=== PATIENT | female | born 1965 | race Caucasian/White ===

== ENCOUNTER → 2022-12-02 08:21 | Outpatient (BNVA) | payer MEDICARE, MEDICAID, SELFPAY | PROVIDERS: PCP Internal Medicine; Visit Provider Psychiatry & Neurology Neurology | DX: G40.909 Epilepsy, unspecified, not intractable, without status epilepticus (principal); I69.354 Hemiplegia and hemiparesis following cerebral infarction affecting left non-dominant side; F48.2 Pseudobulbar affect; G47.10 Hypersomnia, unspecified; R06.83 Snoring | CPT/HCPCS: 99202 ==

== ENCOUNTER → 2023-01-10 19:30 | Outpatient (BNV) | payer MEDICARE, MEDICAID, SELFPAY | PROVIDERS: PCP Internal Medicine; Visit Provider Psychiatry & Neurology Neurology | DX: G47.33 Obstructive sleep apnea (adult) (pediatric) (principal) | CPT/HCPCS: 95810 ==

== ENCOUNTER → 2023-01-10 20:30 | Outpatient (REF) | payer MEDICARE, MEDICAID, SELFPAY | LOC: HO.SL 20:30 | PROVIDERS: PCP Internal Medicine; Visit Provider Psychiatry & Neurology Neurology | DX: R06.83 Snoring (principal); G47.10 Hypersomnia, unspecified | CPT/HCPCS: 95810 ==

== ENCOUNTER 2023-01-22 18:50 | Outpatient (REF) | payer MEDICARE, MEDICAID, SELFPAY ==
--- NOTE | ~2023-01-22 | MR_ITS ---
MRI OF THE BRAIN WITHOUT IV CONTRAST INDICATION: Cerebral infarction. COMPARISON: None available. TECHNIQUE: Multiplanar multisequence MR imaging of the brain was obtained without IV contrast. FINDINGS: There is no hydrocephalus, extra-axial surface collection, or herniation. There is global cerebral and callosal volume loss. There is chronic encephalomalacia and gliosis within the left frontal lobe, likely a chronic left DARLENE territory infarct. Chronic lacunar infarcts within the deep olivera nuclei bilaterally and the left cerebellum. Moderate confluent T2 signal changes concentrated within the periventricular white matter with some foci oriented perpendicular to the lateral ventricular margins and several areas of chronic encephalomalacia spanning the corpus callosum. While a subset of these findings could reflect chronic microangiopathy, the pattern warrants correlating clinically for any evidence of underlying demyelinating disease given the distribution. The major flow voids at the skull base are preserved. There is no acute infarct on diffusion-weighted imaging. There is no intracranial hemorrhage on the gradient recalled echo acquisition. The midline structures are normal. The cerebellar tonsils are normally positioned. The cerebellum and brainstem are normal. The craniocervical junction is normal. Osseous marrow signal intensity is homogenous. The visualized soft tissues are unremarkable. MR/MR head/brain wo con IMPRESSION: - There are no acute intracranial findings. No acute infarcts. - There is chronic encephalomalacia and gliosis within the left frontal lobe, likely a chronic left DARLENE territory infarct. Chronic lacunar infarcts within the deep olivera nuclei bilaterally and the left cerebellum. There is global cerebral and callosal volume loss. - Moderate confluent T2 signal changes concentrated within the periventricular white matter with some foci oriented perpendicular to the lateral ventricular margins and several areas of chronic encephalomalacia spanning the corpus callosum. While a subset of these findings could reflect chronic microangiopathy, the pattern warrants correlating clinically for any evidence of underlying demyelinating disease given the distribution.
== END 2023-01-22 18:51 | disposition home or self-care (01) ==
LOC: HO.MRI 18:50
PROVIDERS: PCP Internal Medicine; Visit Provider Psychiatry & Neurology Neurology
DX: I63.9 Cerebral infarction, unspecified (principal)
CPT/HCPCS: 70551

== ENCOUNTER 2023-03-10 14:08 | Outpatient (AMB) | payer MEDICARE, MEDICAID, SELFPAY ==
--- NOTE | 2023-03-10 14:12 | A.OFFVIS_ITS ---
Intake Vital Signs 03/10/23 14:13 Height 5 ft 9 in Weight 257 lb 8 oz BMI 38.0 BP 130/84 Blood Pressure Location Lt brachial Position Sitting Pulse 82 Pulse Source Pulse Oximeter Pulse Oximetry (%) 97 Oxygen Delivery Method Room Air Intake Visit Reasons: 3m follow up Seizures/Hx of Strokes - Confirmed Intake Note: Pt presents to the office today for a 3 month follow up seizures/hx of strokes. Pt states she is still having issues with her CPAP machine. Pt is having trouble still adjusting to the machine at nighttime. Allergies vancomycin Allergy (Severe, Verified 03/10/23 14:15) Rash HPI HPI Comments History of Present Illness Details 57 y/o female patient presents for follo w up of seizures and sleep apnea. No breakthrough seizure reported. She has hx of a stroke 10 years ago - left hemiparesis with mild residual weakness. She is on 750 mg bid and 250 mg qhs. Her last seizure was 7 years ago when her levetiracetam dose was lowered. Pt underwent split night sleep study. The baseline portion of the sleep study was significant for severe degree of sleep apnea. The AHI was 52/hr and oxygen brianda was 83%. An ideal treatment pressure was not obtained during the sleep study. Pt started APAP at [id number]. The compliance and therapy response (02/08/23-03/09/23) reviewed. The usage days 60% and the average usage hours 3 hours. The maximum pressure was 8.6 and the AHI was 1.2/hr. Brain MRI result reviewed. Pt reports family hx of MS, her mother had it. Pt denies any MS symptoms today. There are no acute intracranial findings. No acute infarcts. - There is chronic encephalomalacia and gliosis within the left frontal lobe, likely a chronic left DARLENE territory infarct. Chronic lacunar infarcts within the deep olivera nuclei bilaterally and the left cerebellum. There is global cerebral and callosal volume loss. - Moderate confluent T2 signal changes c oncentrated within the periventricular white matter with some foci oriented perpendicular to the lateral ventricular margins and several areas of chronic encephalomalacia spanning the corpus callosum. While a subset of these findings could reflect chronic microangiopathy, the pattern warrants correlating clinically for any evidence of underlying demyelinating disease given the distribution. [facility] Medical History Hypersomnia Loud snoring Pseudobulbar affect Cognitive disorder Aortic root dilatation LVH (left ventricular hypertrophy) SVT (supraventricular tachycardia) Colon polyp Hyperlipidemia Hypertrophic cardiomyopathy HTN (hypertension) Secondary seizure disorder Left hemiparesis Cerebral infarction involving middle cerebral artery Cerebral infarction involving anterior cerebral artery Chronic ischemic left anterior cerebral artery (DARLENE) stroke Diabetes Family History Father Heart disease Emphysema lung Mother Multiple sclerosis Social History Alcohol intake: current Patient Tobacco Use Status: Never used Tobacco Review of Systems Const All systems reviewed & are unremarkable except as noted in HPI and below Physical Exam Vital Signs: Last Vital Signs Pulse 82 03/10/23 14:13 BP 130/84 03/10/23 14:13 Pulse Ox 97 03/10/23 14:13 Oxygen Delivery Method Room Air 03/10/23 14:13 BMI result Body Mass Index 38.0 Const General: cooperative and healthy appearing Nutritional Appearance: obese Orientation/consciousness: patient oriented x3 Limitations: no limitations Eyes Pupils: Equal, round and reactive pupils present Neuro Other: mallampatti grade 4 Mild left facial wekaness and synckinesis MIld left UE weakness -5/5 Left LE -5/5 with mild increased tone 5/5 power in right UE and LE General: patient oriented x3, tone normal and moves all extremities Cranial nerves: Yes Equal, round and reactive pupils present, Yes Nystagmus not present, Yes Midline tongue present and Yes Symmetric palate elevation present Cognition (Neuro): normal cognition Gait exam (Neuro): Other gait observations present (mild slowness) Deep tendon reflexes (DTR's): Right triceps reflex intensity grade: 1+, Left triceps reflex intensity grade: 1+, Rt Biceps (C5, C6): 1+, Left biceps reflex intensity grade: 1+, Right brachioradialis reflex intensity grade: 1+, Left brachioradialis reflex intensity grade: 1+, Right patellar reflex intensity grade: 1+ and Left patellar reflex intensity grade: 1+ Coordination: [id number] test normal Assessment & Plan Assessment & Plan (1) Secondary seizure disorder: Code(s): G40.909 - Epilepsy, unspecified, not intractable, without status epilepticus (2) Pseudobulbar affect: Code(s): F48.2 - Pseudobulbar affect (3) Left hemiparesis: Code(s): G81.94 - Hemiplegia, unspecified affecting left nondominant side (4) Sleep apnea treated with continuous positive airway pressure (CPAP): Code(s): G47.30 - Sleep apnea, unspecified Plan Continue Levetiracetam 750mg BID and 250 mg qhs. Continue to use APAP [id number], stressed compliance, use CPAP nightly and more than 4 hrs. Advised patient to try CPAP while she watches TV to get used to it. Continue amitriptyline 25mg qhs. Refer patient to [facility] for abnormal brain MRI result to r/o MS. Orders: Referrals Neurology Referral R90.89 - Other abnormal findings on diagnostic imaging of central nervous system Coding Level of Care Code Est Pt Level 4 (22213) Diagnoses Secondary seizure disorder G40.909 Pseudobulbar affect F48.2 Left hemiparesis G81.94 Sleep apnea treated with continuous positive airway pressure (CPAP) G47.30
[2023-03-10 14:13] VITALS: BP 130/84; PULSE 82; O2SAT 97; BMI 38.0
== END 2023-03-10 14:48 | disposition home or self-care (01) ==
PROVIDERS: PCP Internal Medicine; Visit Provider Nurse Practitioner Family
DX: G40.909 Epilepsy, unspecified, not intractable, without status epilepticus (principal); F48.2 Pseudobulbar affect; G81.94 Hemiplegia, unspecified affecting left nondominant side; G47.30 Sleep apnea, unspecified
CPT/HCPCS: 99214

== ENCOUNTER → 2023-03-10 14:08 | Outpatient (BNVA) | payer MEDICARE, MEDICAID, SELFPAY | PROVIDERS: PCP Internal Medicine; Visit Provider Nurse Practitioner Family | DX: G40.909 Epilepsy, unspecified, not intractable, without status epilepticus (principal); F48.2 Pseudobulbar affect; G81.94 Hemiplegia, unspecified affecting left nondominant side; G47.30 Sleep apnea, unspecified | CPT/HCPCS: 99212 ==

== ENCOUNTER 2023-07-28 14:16 | Outpatient (AMB) | payer MEDICARE, MEDICAID, SELFPAY ==
--- NOTE | 2023-07-28 14:29 | A.OFFVIS_ITS ---
Intake Vital Signs 07/28/23 14:36 Height 5 ft 9 in Weight 261 lb 6 oz BMI 38.6 BP 130/82 Blood Pressure Location Lt brachial Position Sitting Pulse 79 Pulse Source Pulse Oximeter Pulse Oximetry (%) 96 Oxygen Delivery Method Room Air Intake Visit Reasons: appt for CPAP benefits documentation - CONF Intake Note: Patient presents for CPAP benefits documentation. having trouble using machine and gets up coughing Allergies vancomycin Allergy (Severe, Verified 07/28/23 14:35) Rash HPI HPI Comments History of Present Illness Details 57 y/o female patient presents for follo w up of seizures and sleep apnea. No breakthrough seizure reported. She has hx of a stroke 10 years ago - left hemiparesis with mild residual weakness. She is on Keppra 750 mg bid and 250 mg qhs. Her last seizure was 7 years ago when her levetiracetam dose was lowered. Pt underwent split night sleep study. The baseline portion of the sleep study was significant for severe degree of sleep apnea. The AHI was 52/hr and oxygen brianda was 83%. An ideal treatment pressure was not obtained during the sleep study. Pt is on APAP at 7-15 cmH2O. The compliance and therapy response (04/26/23-07/24/23) reviewed. The usage days 20% and the average usage hours 4 hours. The maximum pressure was 12.8 and the AHI was 1/hr. [facility] Medical History Hypersomnia Loud snoring Pseudobulbar affect Cognitive disorder Aortic root dilatation LVH (left ventricular hypertrophy) SVT (supraventricular tachycardia) Colon polyp Hyperlipidemia Hypertrophic cardiomyopathy HTN (hypertension) Secondary seizure disorder Left hemiparesis Cerebral infarction involving middle cerebral artery Cerebral infarction involving anterior cerebral artery Chronic ischemic left anterior cerebral artery (DARLENE) stroke Diabetes Family History Father Heart disease Emphysema lung Mother Multiple sclerosis Social History Alcohol intake: current Patient Tobacco Use Status: Never used Tobacco Review of Systems Const All systems reviewed & are unremarkable except as noted in HPI and below Neuro Reports Abnormal speech present Physical Exam Vital Signs: Last Vital Signs Pulse 79 07/28/23 14:36 BP 130/82 07/28/23 14:36 Pulse Ox 96 07/28/23 14:36 Oxygen Delivery Method Room Air 07/28/23 14:36 BMI result Body Mass Index 38.6 Const General: cooperative and healthy appearing Nutritional Appearance: obese Orientation/consciousness: patient oriented x3 Limitations: no limitations Eyes Pupils: Equal, round and reactive pupils present Neuro Other: mallampatti grade 4 Mild left facial wekaness and synckinesis MIid left UE weakness -5/5 Left LE -5/5 with mild increased tone 5/5 power in right UE and LE General: patient oriented x3, tone normal and moves all extremities Cranial nerves: Yes Equal, round and reactive pupils present, Yes Nystagmus not present, Yes Midline tongue present and Yes Symmetric palate elevation present Cognition (Neuro): normal cognition Speech: Abnormal speech present slurred Gait exam (Neuro): Other gait observations present (mild slowness) Deep tendon reflexes (DTR's): Right triceps reflex intensity grade: 1+, Left triceps reflex intensity grade: 1+, Rt Biceps (C5, C6): 1+, Left biceps reflex intensity grade: 1+, Right brachioradialis reflex intensity grade: 1+, Left brachioradialis reflex intensity grade: 1+, Right patellar reflex intensity grade: 1+ and Left patellar reflex intensity grade: 1+ Coordination: [id number] test normal Assessment & Plan Assessment & Plan (1) Secondary seizure disorder: Code(s): G40.909 - Epilepsy, unspecified, not intractable, without status epilepticus (2) Sleep apnea treated with continuous positive airway pressure (CPAP): Code(s): G47.30 - Sleep apnea, unspecified Plan Continue Levetiracetam 750mg BID and 250 mg qhs. Continue to use APAP 7-17 cmH2O, stressed compliance, use CPAP nightly and more than 4 hrs. Advised patient to try CPAP while she watches TV to get used to it. Continue amitriptyline 25mg qhs. Pt requested brain MRI image. Radiology number given to patient to request CD, and she will bring to her MS [place] luna. She was referred to [facility]. Coding Level of Care Code Est Pt Level 4 (02747) Diagnoses Secondary seizure disorder G40.909 Sleep apnea treated with continuous positive airway pressure (CPAP) G47.30
[2023-07-28 14:36] VITALS: BP 130/82; PULSE 79; O2SAT 96; BMI 38.6
== END 2023-07-28 14:52 | disposition home or self-care (01) ==
PROVIDERS: PCP Internal Medicine; Visit Provider Nurse Practitioner Family
DX: G40.909 Epilepsy, unspecified, not intractable, without status epilepticus (principal); G47.30 Sleep apnea, unspecified
CPT/HCPCS: 99214

== ENCOUNTER → 2023-07-28 14:16 | Outpatient (BNVA) | payer MEDICARE, MEDICAID, SELFPAY | PROVIDERS: PCP Internal Medicine; Visit Provider Nurse Practitioner Family | DX: G47.30 Sleep apnea, unspecified (principal); G40.909 Epilepsy, unspecified, not intractable, without status epilepticus | CPT/HCPCS: 99212 ==

== ENCOUNTER 2023-11-29 14:19 | Outpatient (AMB) | payer MEDICARE, MEDICAID, SELFPAY ==
--- NOTE | 2023-11-29 14:29 | A.OFFVIS_ITS ---
Vital Signs 11/29/23 14:30 Height 5 ft 9 in Weight 259 lb 6 oz BMI 38.3 BP 162/88 H Blood Pressure Location Rt brachial Position Sitting Respiration 16 Pulse 72 Pulse Source Pulse Oximeter Pulse Oximetry (%) 96 Oxygen Delivery Method Room Air Intake Visit Reasons: 4m follow up-CONF Intake Note: Pt presents for 4 month follow up for sleep apnea. Pt reports making progress in using her CPAP. Restrooms Or Lounges Maid Required: No Allergies vancomycin Allergy (Severe, Verified 11/29/23 14:30) Rash Medication List - Last Reconciled 11/29/23 by AMNA Martin amitriptyline 25 mg PO BEDTIME dulaglutide (Trulicity) 4.5 mg subcut QWEEK levetiracetam 750 mg PO BID 90 days levetiracetam 250 mg PO DAILY 90 days metformin ER 1,000 mg PO BID rosuvastatin 20 mg PO BEDTIME verapamil 80 mg PO TID HPI Comments Details: 57-yr-old female presents for f/u visit of seizure and YADIEL. Pt denies any significant interval medical changes. Pt denies interval seizure activity. Last seizure was 8 yrs ago. She had consult at [facility]- Pt states they felt that the intracerebral white matter changes on the recent brain MRI were c/w chronic microangiopathic changes in setting of h/o CVA. And not reflective of a demyelinating process, such as MS. Pt herself does not feel that she has had s/s of MS. Pt reports that she is better able to tolerate her CPAP.more. However, if she cannot breath well d/t her allergy s/s then she cannot tolerate it well. Usually goes to bed between 10pm-12am. Her machine does not seem to be clearing the hours between uses. Amitriptyline is still helpful for pseudobulbar affective d/o s/s. [facility] Medical History Hypersomnia Loud snoring Pseudobulbar affect Cognitive disorder Aortic root dilatation LVH (left ventricular hypertrophy) SVT (supraventricular tachycardia) Colon polyp Hyperlipidemia Hypertrophic cardiomyopathy HTN (hypertension) Secondary seizure disorder Left hemiparesis Cerebral infarction involving middle cerebral artery Cerebral infarction involving anterior cerebral artery Chronic ischemic left anterior cerebral artery (DARLENE) stroke Diabetes Family History Father Heart disease Emphysema lung Mother Multiple sclerosis Social History Alcohol intake: current Patient Tobacco Use Status: Never used Tobacco Physical Exam Vital Signs: Last Vital Signs Pulse 72 11/29/23 14:30 Resp 16 11/29/23 14:30 BP 162/88 H 11/29/23 14:30 Pulse Ox 96 11/29/23 14:30 Oxygen Delivery Method Room Air 11/29/23 14:30 BMI result Body Mass Index 38.3 Const General: cooperative and no acute distress Orientation/consciousness: patient oriented x3 Resp Effort & Inspection: normal respiratory effort and able to speak in complete sentences Neuro Other: Left hemiparesis General: patient oriented x3 Cognition (Neuro): normal cognition Psych Appearance: grossly normal Mental Status: mental status grossly normal Speech and movement: Normal speech and movement present Affect: normal affect Attitude: cooperative Assessment & Plan Assessment & Plan (1) Sleep apnea treated with continuous positive airway pressure (CPAP): Code(s): G47.30 - Sleep apnea, unspecified Category: Medical (2) Secondary seizure disorder: Code(s): G40.909 - Epilepsy, unspecified, not intractable, without status epilepticus Category: Medical (3) Abnormal finding on MRI of brain: Code(s): R90.89 - Other abnormal findings on diagnostic imaging of central nervous system Category: Medical Plan Continue Keppra 1000mg qam and Keppra 750mg qhs. Continue APAP at 7-15 cmH2O. May use Benadryl qhs prn for allergy s/s. If allergy s/s worsen- could consider optimizing allergy tx or referring pt back to general repair mechanic. Continue amitriptyline 25mg qhs- for pseudobulbar affect f/u in 6 months or sooner prn. Medications: Changed 2 From amitriptyline 25 mg PO BEDTIME 90 tabs 4RF To amitriptyline 25 mg PO BEDTIME 90 tabs 3RF 90 days Refilled levetiracetam 250 mg PO DAILY 90 tabs 3RF 90 days levetiracetam 750 mg PO BID 180 tabs 3RF 90 days Coding Level of Care Code Est Pt Level 4 (16625) Diagnoses Sleep apnea treated with continuous positive airway pressure (CPAP) G47.30 Secondary seizure disorder G40.909 Abnormal finding on MRI of brain R90.89
[2023-11-29 14:30] VITALS: BP 162/88; PULSE 72; RESP 16; O2SAT 96; BMI 38.3
== END 2023-11-29 15:31 | disposition home or self-care (01) ==
PROVIDERS: PCP Internal Medicine; Visit Provider Nurse Practitioner Family
DX: G47.30 Sleep apnea, unspecified (principal); G40.909 Epilepsy, unspecified, not intractable, without status epilepticus; R90.89 Other abnormal findings on diagnostic imaging of central nervous system
CPT/HCPCS: 99214

== ENCOUNTER → 2023-11-29 14:19 | Outpatient (BNVA) | payer MEDICARE, MEDICAID, SELFPAY | PROVIDERS: PCP Internal Medicine; Visit Provider Nurse Practitioner Family | DX: G40.909 Epilepsy, unspecified, not intractable, without status epilepticus (principal); G47.30 Sleep apnea, unspecified; R90.89 Other abnormal findings on diagnostic imaging of central nervous system | CPT/HCPCS: 99212 ==

== ENCOUNTER 2024-06-27 14:51 | Outpatient (AMB) | payer MEDICARE, MEDICAID, SELFPAY ==
--- NOTE | 2024-06-27 15:00 | MHC.OFFVIS ---
Vital Signs 06/27/24 15:02 Height 5 ft 9 in Weight 259 lb 6 oz BMI 38.3 BP 130/90 H Blood Pressure Location Lt brachial Position Sitting Pulse 78 Pulse Source Pulse Oximeter Pulse Oximetry (%) 97 Oxygen Delivery Method Room Air Intake Visit Reasons: 6 month F/U Accompanied by: Self / Same As Patient Allergies vancomycin Allergy (Severe, Verified 06/27/24 15:05) Rash Medication List - Last Reconciled 06/27/24 by AMNA Martin amitriptyline 25 mg PO BEDTIME 90 days levetiracetam 250 mg PO DAILY 90 days levetiracetam 750 mg PO BID 90 days metformin ER 1,000 mg PO BID rosuvastatin 20 mg PO BEDTIME semaglutide (Ozempic) 0.5 mg subcut QWEEK verapamil 80 mg PO TID HPI Comments Details: 58-yr-old female presents for f/u visit of seizure and YADIEL. Pt denies any significant interval medical changes. She states she has a new fancy wire drawer at Cardiology (at [facility]), as Dr Barksdale has retired. Pt denies interval seizure activity. Last seizure was 8 yrs ago. Pt reports she has not been using her CPAP, states she just cannot start to fall asleep with it on. She does continue to have loud snoring. She read up on the inspire implant for YADIEL tx, however she is not interested in this type of surgical procedure. She is not interested in adding a new medication to help with sleep, anxiety related to the CPAP mask. Would not increase amitriptyline due to her cardiovascular disease, and she would be hesitant due to risk for weight gain. She would be open to trying melatonin. Amitriptyline is still helpful for pseudobulbar affective d/o s/s. [facility] Medical History Hypersomnia Loud snoring Pseudobulbar affect Cognitive disorder Aortic root dilatation LVH (left ventricular hypertrophy) SVT (supraventricular tachycardia) Colon polyp Hyperlipidemia Hypertrophic cardiomyopathy HTN (hypertension) Secondary seizure disorder Left hemiparesis Cerebral infarction involving middle cerebral artery Cerebral infarction involving anterior cerebral artery Chronic ischemic left anterior cerebral artery (DARLENE) stroke Diabetes Family History Father Heart disease Emphysema lung Mother Multiple sclerosis Social History Alcohol intake: current Patient Tobacco Use Status: Never used Tobacco Physical Exam Vital Signs: Last Vital Signs Pulse 78 06/27/24 15:02 BP 130/90 H 06/27/24 15:02 Pulse Ox 97 06/27/24 15:02 Oxygen Delivery Method Room Air 06/27/24 15:02 BMI result Body Mass Index 38.3 Const General: cooperative and no acute distress Orientation/consciousness: patient oriented x3 Resp Effort & Inspection: normal respiratory effort and able to speak in complete sentences Neuro Other: Left hemiparesis General: patient oriented x3 Cognition (Neuro): normal cognition Psych Appearance: grossly normal Mental Status: mental status grossly normal Speech and movement: Normal speech and movement present Affect: normal affect Attitude: cooperative Assessment & Plan Assessment & Plan (1) Severe obstructive sleep apnea: Code(s): G47.33 - Obstructive sleep apnea (adult) (pediatric) Category: Medical (2) Loud snoring: Code(s): R06.83 - Snoring Category: Medical (3) Sleep apnea treated with continuous positive airway pressure (CPAP): Code(s): G47.30 - Sleep apnea, unspecified Category: Medical (4) Secondary seizure disorder: Code(s): G40.909 - Epilepsy, unspecified, not intractable, without status epilepticus Category: Medical Plan Procedure disorder: Continue Keppra 750 mg qam and Keppra 1000mg qhs. For severe obstructive sleep apnea: Encourage patient to resume APAP at 7-15 cmH2O with goal of using APAP greater than 4 hours per night. Trial adding melatonin 1-3 mg Q evening, in hopes this improves APAP tolerance. We will request ENT consult- to assess for alternate sleep apnea and snoring treatment strategies. Note, patient is not interested in inspire implantation. Patient is currently on a weight loss program, including Ozempic tx. May use Benadryl qhs prn for allergy s/s. If allergy s/s worsen- could consider optimizing allergy tx or referring pt back to irrigation service technician. For pseudobulbar affect disorder: Continue amitriptyline 25mg qhs. f/u in 6 months or sooner prn. Orders: Referrals Ear/Nose/Throat Referral G47.33 - Obstructive sleep apnea (adult) (pediatric), R06.83 - Snoring Medications: New melatonin 1 - 3 mg (1 - 3 x 1 mg) PO BEDTIME 90 days 270 tabs 1RF sleep Coding Level of Care Code Est Pt Level 4 (40955) Diagnoses Severe obstructive sleep apnea G47.33 Loud snoring R06.83 Sleep apnea treated with continuous positive airway pressure (CPAP) G47.30 Secondary seizure disorder G40.909
[2024-06-27 15:02] VITALS: BP 130/90; PULSE 78; O2SAT 97; BMI 38.3
== END 2024-06-27 15:51 | disposition home or self-care (01) ==
PROVIDERS: PCP Internal Medicine; Visit Provider Nurse Practitioner Family
DX: G47.33 Obstructive sleep apnea (adult) (pediatric) (principal); R06.83 Snoring; G47.30 Sleep apnea, unspecified; G40.909 Epilepsy, unspecified, not intractable, without status epilepticus
CPT/HCPCS: 99214

== ENCOUNTER → 2024-06-27 14:51 | Outpatient (BNVA) | payer MEDICARE, MEDICAID, SELFPAY | PROVIDERS: PCP Internal Medicine; Visit Provider Nurse Practitioner Family | DX: G47.33 Obstructive sleep apnea (adult) (pediatric) (principal); G47.30 Sleep apnea, unspecified; G40.909 Epilepsy, unspecified, not intractable, without status epilepticus; R06.83 Snoring | CPT/HCPCS: 99212 ==

== ENCOUNTER 2025-01-02 14:18 | Outpatient (AMB) | payer MEDICARE, MEDICAID, SELFPAY ==
[2025-01-02 14:28] VITALS: BP 104/68; PULSE 83; O2SAT 97; BMI 38.2
--- NOTE | 2025-01-02 14:28 | HO.NEPHOV ---
Vital Signs 01/02/25 14:28 Height 5 ft 9 in Weight 259 lb BMI 38.2 BP 104/68 Blood Pressure Location Rt brachial Position Sitting Pulse 83 Pulse Source Pulse Oximeter Pulse Oximetry (%) 97 Oxygen Delivery Method Room Air Intake Visit Reasons: Follow Up 6mo Health Education Aide Required: No Accompanied by: Self / Same As Patient Allergies vancomycin Allergy (Severe, Verified 01/02/25 14:30) Rash Medication List - Last Reconciled 01/02/25 by AMNA Martin amitriptyline 25 mg PO BEDTIME 90 days aspirin 81 mg PO DAILY empagliflozin (Jardiance) 10 mg PO DAILY levetiracetam 250 mg PO DAILY 90 days levetiracetam 750 mg PO BID 90 days losartan 25 mg PO DAILY melatonin 1 - 3 mg (1 - 3 x 1 mg) PO BEDTIME 90 days rosuvastatin 20 mg PO BEDTIME semaglutide (Ozempic) 0.5 mg subcut QWEEK verapamil 80 mg PO TID HPI Comments Details: 59-yr-old female presents for f/u visit of severe obstructive sleep apnea, seizure status post CVA in 2012. Pt denies any significant interval medical changes. Pt states BP has been stable, occasionally SBP will increase to 140s when at an MD appt. She has stopped metformin d/t increased diarrhea s/s, and was switched to Jardiance which she has been tolerating better. Pt denies interval seizure activity. Compliant w/ Keppra- tolerating well. Last seizure was in 2013. Amitriptyline is still helpful for pseudobulbar affective d/o s/s. Pt reports she has not been using her CPAP, as she has just not been able to adjust to using it. But she still has the machine, and may reconsider trying it in the fall. She has started low-dose melatonin, which she finds helpful. She does continue to have loud snoring. She read up on the inspire implant for YADIEL tx, however she is not interested in this type of surgical procedure. She is not interested in adding a new medication to help with sleep, anxiety related to the CPAP mask. Would not increase amitriptyline due to her cardiovascular disease, and she would be hesitant due to risk for weight gain. [facility] Medical History (Updated 01/02/25 @ 17:51 by AMNA Martin) Hypersomnia Loud snoring Pseudobulbar affect Cognitive disorder Aortic root dilatation LVH (left ventricular hypertrophy) SVT (supraventricular tachycardia) Colon polyp Hyperlipidemia Hypertrophic cardiomyopathy HTN (hypertension) Secondary seizure disorder Left hemiparesis Cerebral infarction involving middle cerebral artery Cerebral infarction involving anterior cerebral artery Chronic ischemic left anterior cerebral artery (DARLENE) stroke Diabetes Family History Father Heart disease Emphysema lung Mother Multiple sclerosis Social History Alcohol intake: current Patient Tobacco Use Status: Never used Tobacco Physical Exam Vital Signs: Last Vital Signs Pulse 83 01/02/25 14:28 BP 104/68 01/02/25 14:28 Pulse Ox 97 01/02/25 14:28 Oxygen Delivery Method Room Air 01/02/25 14:28 BMI result Body Mass Index 38.2 Const General: cooperative and no acute distress Orientation/consciousness: patient oriented x3 Resp Effort & Inspection: normal respiratory effort and able to speak in complete sentences Neuro Other: Left hemiparesis General: patient oriented x3 Cognition (Neuro): normal cognition Psych Appearance: grossly normal Mental Status: mental status grossly normal Speech and movement: Normal speech and movement present Affect: normal affect Attitude: cooperative Assessment & Plan Assessment & Plan (1) Severe obstructive sleep apnea: Code(s): G47.33 - Obstructive sleep apnea (adult) (pediatric) Category: Medical (2) Loud snoring: Code(s): R06.83 - Snoring Category: Medical (3) Sleep apnea treated with continuous positive airway pressure (CPAP): Code(s): G47.30 - Sleep apnea, unspecified Category: Medical (4) Secondary seizure disorder: Code(s): G40.909 - Epilepsy, unspecified, not intractable, without status epilepticus Category: Medical (5) Left hemiparesis: Code(s): G81.94 - Hemiplegia, unspecified affecting left nondominant side Category: Medical (6) Chronic ischemic left anterior cerebral artery (DARLENE) stroke: Code(s): I69.30 - Unspecified sequelae of cerebral infarction Category: Medical Plan Procedure disorder: Continue Keppra 750 mg qam and Keppra 1000mg qhs. For severe obstructive sleep apnea in setting of history of CVA: Continue to optimize cardiovascular risk factors including maintaining optimal blood pressure and blood sugar control. In the fall, try to resume APAP at 7-15 cmH2O with goal of using APAP greater than 4 hours per night. Continue melatonin 1-3 mg Q evening, in hopes this improves APAP tolerance. Will f/u on referral for ENT consult- to assess for alternate sleep apnea and snoring treatment strategies. Note, patient is not interested in inspire implantation. Patient is currently on a weight loss program, including Ozempic tx. May use Benadryl qhs prn for allergy s/s. If allergy s/s worsen- could consider optimizing allergy tx or referring pt back to seconds inspector. For pseudobulbar affect disorder: Continue amitriptyline 25mg qhs. f/u in 6 months or sooner prn. Coding Level of Care Code Est Pt Level 4 (56728) Diagnoses Severe obstructive sleep apnea G47.33 Loud snoring R06.83 Sleep apnea treated with continuous positive airway pressure (CPAP) G47.30 Secondary seizure disorder G40.909 Left hemiparesis G81.94 Chronic ischemic left anterior cerebral artery (DARLENE) stroke I69.30
--- OUTSIDE RECORDS SUMMARY | 2025-01-02 15:32 | XMS_ITS | Clinical Summary ---
Author Organization [facility] Address [address] [place] [id number] Phone Care Team Providers Care Vacuum Drier Tender Name Role Phone Haydenmaritza Shmueltamiko ORE Primary Care Provider [phone] Allergies Active Allergy Reactions Criticality Noted Date Comments Vancomycin Hcl Rash High 04/20/2013 Medications aspirin 325 MG EC tablet Dose: 325 MG; Form: Take [address]; Route: PO; Frequency: QD; Directions: Not available; Details: Dispense: Tablet(s); Date: 04/20/2013 3 Active losartan (COZAAR) 50 MG tablet Dose: 50 MG; Form: Take 1 TABLET; Route: PO; Frequency: QD; Directions: Not available; Details: Dispense: Tablet(s); Date: 04/20/2013 3 Active diltiazem (CARDIZEM) 120 MG tablet Dose: Not available; Form: Not available; Route: PO; Frequency: as directed; Directions: Not available; Details: Dispense: Tablet(s); Date: 04/20/2013 3 Active insulin lispro (HUMALOG) 100 unit/mL injection vial Dose: 10 UNITS; Form: Not available; Route: SC; Frequency: BID BEFORE BREAKFAST AND BEFORE SUPPER; Directions: 20 UNITS PRN; Details: Dispense: ML(s); Date: 07/07/2013 4 Active insulin glargine (LANTUS) 100 unit/mL injection vial Dose: Not available; Form: Not available; Route: SC; Frequency: Not available; Directions: As directed, 25 Units at bedtime; Details: Dispense: ML(s); Date: 07/07/2013 4 Active metoprolol (LOPRESSOR) 50 MG tablet Take 50 mg by mouth 2 (two) times a day. Active metFORMIN (GLUCOPHAGE) 500 MG tablet Take 500 mg by mouth daily with breakfast. Active cholecalciferol (VITAMIN D3) 50,000 unit tablet Take by mouth once a week. Active gabapentin (NEURONTIN) 300 MG capsule Take 1 capsule (300 mg total) by mouth 2 (two) times a day. 60 capsule 5 8 Active Additional Information Patient not taking.Reported on 12/07/2018 liraglutide (VICTOZA) 0.6 mg/0.1 mL (18 mg/3 mL) PnIj Inject 1.2 mg under the skin daily. Active rosuvastatin (CRESTOR) 20 MG tablet Take 20 mg by mouth daily. Active amitriptyline (ELAVIL) 25 MG tablet TAKE 1 TABLET EVERY DAY 90 tablet 1 0 Active levETIRAcetam (KEPPRA) 750 MG tablet Take 1 tablet (750 mg total) by mouth 2 (two) times a day. 60 tablet 11 2 Active Active Problems Problem Noted Date Diagnosed Date Seizure disorder 07/07/2013 Overview (08/04/2014): Seizure disorder Hypertrophic non-obstructive cardiomyopathy 06/15 Overview (08/04/2014): Hypertrophic cardiomyopathy without obstruction Cerebrovascular accident 04/20/2013 Overview (08/04/2014): Stroke Immunizations Immunization Administration Dates Next Due Pneumococcal polysaccharide PPSV23 01/28/2013(De ferred: Other) Family History Medical History Relation Comments Coronary artery disease Father Coronary Artery Disease Relation Status Comments Father Social History Tobacco Use Types Packs/Day Years Used Date Smoking Tobacco: Never Education Answer Date Recorded Are you interested in more education? Not on gonsalo e 10/22/2022 Are you concerned about learning? Not on file 10/22/2022 No 10/22/2022 No 10/22/2022 Digital Access Answer Date Recorded No 11/08/2022 No 11/08/2022 No 11/08/2022 Reliable internet access at home? Not on file 11/08/2022 Device with a working camera? Not on file Comments Unknown Sex and Gender Information Value Date Recorded Sex Assigned at Not on file Legal Sex Female 6:50 PM EST Gender Identity Not on file Sexual Orientation Not on file Last Filed Vital Signs Vital Sign Reading Time Taken Comments Blood Pressure 138/65 12/07/2018 1:44 PM EDT Pulse 64 12/07/2018 1:44 PM EDT Temperature 35.5 C (95.9 F) 05/31/2013 2:53 PM EST Respiratory Rate - - Oxygen Saturation 100% 11/17/2017 11:17 AM EDT Inhaled Oxygen Concentration - - Weight 129.7 kg (286 lb) 12/07/2018 1:44 PM EDT Height 175.3 cm (5' 9 ) 11/17/2017 11:17 AM EDT Body Mass Index 42.23 11/17/2017 11:17 AM EDT Plan of Treatment Health Maintenance Due Date Last Done Comments Adult Td,Tdap Booster 1966 DEPRESSION SCREENING 1978 PAP SMEAR 12/22/1987 MAMMOGRAM 2006 COLOGUARD 12/22/2011 COLONOSCOPY 12/22/2011 COLORECTAL CANCER SCREENING 12/22/2011 FIT TEST 12/22/2011 FOBT 12/22/2011 SIGMOIDOSCOPY 12/22/2011 VIRTUAL COLONOSCOPY 12/22/2011 CREATININE LEVEL 02/06/2014 02/06/2013, , 02/04/2013, Additional history exists POTASSIUM LEVEL 02/07/2014 02/07/2013, 01/13, 02/06/2013, Additional history exists PNEUMOCOCCAL VACCINES (50+ years) (1 of 1 - PCV) 2016 ZOSTER VACCINES (1 of 2) 2016 COVID-19 VACCINE ( season) 2024 09/12/2020, 08/15/2020 HEPATITIS C SCREENING Completed 01/26/2013 HIV ONE-TIME SCREENING (18-65 YEARS) Completed 01/26/2013 SMOKING STATUS SCREENING (Once After 26 Yrs) Completed 11/20/2015 HEPATITIS A VACCINES Aged Out No long er eligible based on patient's age to complete this topic HIB VACCINES Aged Out No longer eligi ble based on patient's age to complete this topic MENINGOCOCCAL VACCINES (ACWY) Aged Out No longer eligible based on patient's age to complete this topic MENINGOCOCCAL VACCINES (B) Aged Out N o longer eligible based on patient's age to complete this topic Medical Devices Not on file Procedures Procedure Name Priority Date/Time Associated Diagnosis Comments HISTORICAL LAB Routine 02/07/2013 7:47 AM EDT HISTORICAL LAB Routine 02/06/2013 7:42 AM EDT HISTORICAL LAB Routine 01/26/2013 8:38 PM EDT from Last 3 Months or Most Recently Relevant to Health Maintenance Results * Historical Lab (02/07/2013 7:47 AM EDT) Only the most recent of3 resultswithin the time period is included. POTASSIUM 3.8 3.4 - 5.0 mmol/L [facility] MAGNESIUM 1.8 1.7 - 2.6 mg/dL [facility] 02/07/2013 7:47 AM EDT Comment:BLOOD us Conversion Provider Not In Sys LAB BLOOD ORDERAB LES Final Result Performing Organization Address City/State/[facility] Co de Phone Number [address] [address] from Last 3 Months or Most Recently Relevant to Health Maintenance Insurance MEDICARE PART A & B [place] [facility] [place] [facility] [place] [facility] [place] & B Member Subscriber Plan / Payer ( fective 2018-Present) Name:Cherelle Gilbert Member ID:[id number] Relation to Subscriber:Self Name:Cherelle Gilbert Subscriber ID:[id number] Payer ID:[id number] Group ID:Not on file Type:Medicare Address[facility] [address] [place], [place] [id number] [place] A & B [facility] Care Teams Vacuum Drier Tender Relationship Specialty Start Date End Date Shmuel Nieves DO [address] [place] [address] [address] [place] [address] PCP - General Internal Medicine 11/17/17 Additional Source Comments The information contained in this document represents components of the legal health record. It is not the complete legal health record.[facility]
--- OUTSIDE RECORDS SUMMARY | 2025-01-02 15:32 | XMS_ITS ---
Author Name [facility] Organization Unknown History of Medication Use Medication Directions Dispensed Refills Start Date End Date Stat Trulicity 4.5 MG/0.5ML subcutaneous pen-injector INJECT 0.5ML ONCE WEEKLY 04/05/2023 active verapamil (CALAN) 80 MG tablet Take 1 tablet (80 mg total) by mouth 3 (three) times a day. 02/22/2023 active rosuvastatin (CRESTOR) tablet 20 mg Take 1 tablet (20 mg total) by mouth daily. 02/12/2023 active amitriptyline (ELAVIL) tablet 25 mg 1 tablet (25 mg total). 08/03/2016 active atorvastatin (LIPITOR) tablet 80 mg Take 1 tablet (80 mg total) by mouth. 03/20/2013 active aspirin 81 MG chewable tablet Chew 1 tablet (81 mg total) by mouth daily. active Cholecalciferol 1.25 MG (02362 UT) TABS Take by mouth every 7 days. active Allergies Allergen Reaction Severity Comment Documented Date Source Statu s SPIRONOLACTONE 02/26/2021 [facility] activ e VANCOMYCIN RASH 04/20/2013 [facility] active Problems Problem Status Onset Date Problem Type Date of Resoluti on Source White matter disease active EncounterDiagnosisAct [facility] MG
--- OUTSIDE RECORDS SUMMARY | 2025-01-02 15:32 | XMS_ITS | Clinical Summary ---
Author Organization [facility] Address [address] [place] [address] Care Team Providers Care Supply Aide Name Role Phone HaydenShmuel salas Primary Care Provider [phone] Allergies Active Allergy Reactions Criticality Noted Date Comments Spironolactone 02/26/2021 Vancomycin Rash High 04/20/2013 Medications Medication Sig Dispensed Refills Start Date End Date Status amitriptyline (ELAVIL) tablet 25 mg 1 tablet (25 mg total). 0 08/03/2016 Active aspirin 81 MG chewable tablet Chew 1 tablet (81 mg total) by mouth daily. 0 Active atorvastatin (LIPITOR) tablet 80 mg Take 1 tablet (80 mg total) by mouth. 0 03/20/2013 Active Cholecalciferol 1.25 MG (92041 UT) TABS Take by mouth every 7 days. 0 Active Trulicity 4.5 MG/0.5ML subcutaneous pen-injector INJECT 0.5ML ONCE WEEKLY 0 04/05/2023 Active levETIRAcetam (Keppra XR) 750 MG TB24 tablet Take 2 tablets (1,500 mg total) by mouth. 0 10/13/2013 Active levETIRAcetam (KEPPRA) 250 MG tablet Take 1 tablet (250 mg total) by mouth daily. 0 07/16/2016 Active metFORMIN (GLUCOPHAGE-XR) ER 24 hr tablet 500 mg TAKE 2 TABLETS BY MOUTH TWICE A DAY BEFORE MEALS 90 0 03/08/2023 Active rosuvastatin (CRESTOR) tablet 20 mg Take 1 tablet (20 mg total) by mouth daily. 0 02/12/2023 Active verapamil (CALAN) 80 MG tablet Take 1 tablet (80 mg total) by mouth 3 (three) times a day. 0 02/22/2023 Active Family History Medical History Relation Name Comments Multiple sclerosis Mother Relation Name Status Comments Mother Social History Tobacco Use Types Packs/Day Years Used Date Smoking Tobacco: Never Assessed Sex and Gender Information Value Date Recorded Sex Assigned at Female 03/17/2023 2:45 PM EDT Gender Identity Not on file Sexual Orientation Not on file Job Start Date Occupation Industry Not on file Not on file Not on file Last Filed Vital Signs Vital Sign Reading Time Taken Comments Blood Pressure 179/82 10/21/2023 3:56 PM EDT Pulse 82 10/21/2023 3:56 PM EDT Temperature 36.2 C (97.1 F) 10/21/2023 3:56 PM EDT Respiratory Rate - - Oxygen Saturation 97% 10/21/2023 3:56 PM EDT Inhaled Oxygen Concentration - - Weight 118.8 kg (262 lb) 10/21/2023 3:56 PM EDT Height 175.3 cm (5' 9 ) 10/21/2023 3:56 PM EDT Body Mass Index 38.69 10/21/2023 3:56 PM EDT Plan of Treatment Health Maintenance Due Date Last Done Comments Hepatitis B Vaccines (1 of 3 - 3-dose series) 1966 Hepatitis C Screening 1966 COVID-19 Vaccine (#1) 06/23/1967 Depression Screening 1978 BMI Counseling 1984 Preventative Health Evaluation 1984 DTap / Tdap / Td (1 - Tdap) 1985 Cervical Cancer Screening (P ap Smear) 12/22/1987 Colon Cancer Screening (Colonoscopy) 12/22/2011 Breast Cancer Screening (Mammogram) 2016 Shingrix-Zoster Vaccine (1 of 2) 2016 Influenza Vaccine (#1) 2025 04/24/2013 Pneumococcal Vaccine Aged Out 04/24/2013 No long er eligible based on patient's age to complete this topic RSV Ped < 20 months Aged Out No longe r eligible based on patient's age to complete this topic Care Teams Supply Aide Relationship Specialty Start Date End Date Shmuel Nieves DO [address] [address] PCP - General Internal Medicine 04/05/23
--- OUTSIDE RECORDS SUMMARY | 2025-01-02 15:32 | XMS_ITS | Clinical Summary ---
Author Organization [facility] Address [address] [place] [address] Care Team Providers Care Canary Raiser Name Role Phone Unavailable Primary Care Provider Unavailabl e Medications dilTIAZem CD (CARDIZEM CD) 180 MG 24 hr capsule TAKE 1 CAPSULE BY MOUTH EVERY DAY 90 capsule 3 11/12/2021 Active Family History Medical History Relation Comments Cancer Father Heart disease Father triple bypass Hypertension Father Hypertension Mother Relation Status Comments Father Mother Social History Tobacco Use Types Packs/Day Years Used Date Smoking Tobacco: Never Alcohol Use Standard Drinks/Week Comments No 0 (1 standard drink = 0.6 oz pur e alcohol) Comments Unknown Sex and Gender Information Value Date Recorded Sex Assigned at Not on file Legal Sex Female 5:23 PM EST Gender Identity Not on file Sexual Orientation Not on file Plan of Treatment Health Maintenance Due Date Last Done Comments Breast Cancer Screening 1965 Hepatitis B Vaccine (1 of 3 - 19+ 3-dose series) 12/21 Pneumococcal Vaccine: 50+ Years (2 of 2 - PCV) 014 01/14/2013 Colorectal Cancer Screening: Annual FOBT 12/22/2015 Colorectal Cancer Screening: Colonoscopy 12/22/2015 Colorectal Cancer Screening: Sigmoidoscopy 12/22/2015 Diabetes: Hemoglobin A1C 07/14/2020 Diabetes: Ophthalmology Exam 07/14/2020 Diabetes: Pedal Pulse Checked 07/14/2020 Diabetes: Sensory Foot Exam 07/14/2020 Diabetes: Visual Foot Exam 07/14/2020 Influenza Vaccine (#1) 2025 Pneumococcal Vaccine: Peds ( 0 to 5 Years) and At-Risk Patients (6 to 49 Years) Discontinued 01/14/2013
--- OUTSIDE RECORDS SUMMARY | 2025-01-02 15:32 | XMS_ITS | Clinical Summary ---
Author Organization 175 [facility] Address [address] [place] [address] Phone Care Team Providers Care Brass Pickler Name Role Phone Shmuel Nieves Primary Care Provider [phone] Allergies Active Allergy Reactions Criticality Noted Date Comments Spironolactone 02/26/2021 Vancomycin Rash High 04/20/2013 Medications amitriptyline (ELAVIL) 25 mg tablet Take 1 tablet (25 mg total) by mouth at bedtime. 08/03/19 17 Active aspirin 81 mg chewable tablet Chew 1 tablet (81 mg total) by mouth daily. Active cholecalciferol (VITAMIN D3) 1,250 mcg (50,000 unit) tablet Take by mouth every 7 days. Active levETIRAcetam (KEPPRA) 250 mg tablet Take 1 tablet (250 mg total) by mouth daily. 07/16/19 17 Active levETIRAcetam (KEPPRA) 750 mg tablet 1 tablet 2 times daily. Active rosuvastatin (CRESTOR) 20 mg tablet Take 1 tablet (20 mg total) by mouth 1 (one) time each day. 02/13/20 23 Active losartan (Cozaar) 25 mg tablet Take 1 tablet (25 mg total) by mouth 1 (one) time each day. 90 each 3 06/29/19 25 026 Active verapamiL (CALAN) 80 mg tablet TAKE 1 TABLET BY MOUTH THREE TIMES A DAY 270 tablet 1 08/17/19 25 Active metFORMIN XR (GLUCOPHAGE-XR) 500 mg 24 hr tabletIndication s:Type 2 diabetes mellitus with other specified complication (CMS/HCC V24, CMS/FORMERLY [facility] V28) TAKE 2 TABLETS BY MOUTH TWICE A DAY BEFORE MEALS 360 tablet 1 11/21/19 25 Active empagliflozin (JARDIANCE) 10 mg tabletIndication s:Type 2 diabetes mellitus with other specified complication, without long-term current use of insulin (CMS/[facility] V24, CMS/HCC V28) Take 1 tablet (10 mg total) by mouth 1 (one) time each day. 30 tablet 1 12/01/19 25 Active Ozempic 0.25 mg or 0.5 mg (2 mg/3 mL) injection penIndications:T ype 2 diabetes mellitus with other specified complication (CMS/HCC V24, CMS/HCC V28) INJECT 0.5 MG UNDER THE SKIN EVERY 7 DAYS. 2 mL 3 12/08/19 25 Active blood-glucose sensor (FreeStyle Trisha 3 Plus Sensor) deviceIndication s:Type 2 diabetes mellitus with other specified complication, without long-term current use of insulin (CMS/[facility] V24, CMS/[facility] V28) Box = Kit = EA, change sensor every 2 weeks, 6 each 3 12/08/19 25 Active semaglutide (Ozempic) 0.25 mg or 0.5 mg (2 mg/3 mL) injection penIndications:T ype 2 diabetes mellitus with other specified complication (CMS/HCC V24, CMS/[facility] V28) Inject 0.5 mg under the skin every 7 (seven) days. 3 mL 3 08/09/19 25 025 Discontinued blood-glucose sensor (FreeStyle Trisha 3 Plus Sensor) deviceIndication s:Type 2 diabetes mellitus with other specified complication, without long-term current use of insulin (CMS/[facility] V24, CMS/[facility] V28) Box = Kit = EA, change sensor every 2 weeks, 6 each 3 12/01/19 25 025 Discontinued(Re order) Active Problems Problem Noted Date Diagnosed Date Hypertrophic cardiomyopathy ([facility] V24, [facility] V28) 06/29/2024 Overview (06/29/2024): -Patient reports she had a full evaluation at [facility] hypertrophic cardiomyopathy clinic by Dr. Espinal many years ago (he has since moved to [facility]) and was deemed to be a lower risk patient for sudden cardiac and therefore AICD was not warranted -Cardiac MRI in April 2013 showed markedly increased left ventricular wall thickness with delayed gadolinium enhancement in the mid and basal lateral wall with displacement of the anterior mitral valve leaflet into the LV outflow tract but no significant gradient, ejection fraction 62%, normal RV size and systolic function - Most recent echocardiogram from March 2023 showed severe, concentric left ventricular hypertrophy with small LV cavity size, normal regional wall motion with vigorous systolic function and ejection fraction of 65 to 70%, grade 2 diastolic dysfunction consistent with increased left atrial pressure, mild mid cavitary gradient at rest that increases minimally with Valsalva, normal RV size with reduced systolic function, no hemodynamically significant valve disease, dilated aortic root at 4.2 cm, ascending aorta at 4.3 cm, and transverse aorta at 3.1 cm-since January 2021, aortic root has grown from 3.9 to 4.2 cm and ascending aorta has grown from 4.1 to 4.3 cm Assessment & Plan (06/29/2024 4:48 PM EST): Overall low risk phenotype but we will continue to screen her. I would like to update a 24-hour Holter monitor. Orders: Cardiac holter monitor (<= 48 hours); Future Aneurysm of ascending aorta without rupture ([facility] /[facility] V24) 06/29/2024 Assessment & Plan (06/29/2024 4:49 PM EST): Possibly some growth between 2020 to 2022. I would like to update imaging. I have ordered a limited echocardiogram first available for thoracic aorta imaging alone. Orders: Transthoracic echocardiogram (TTE) limited with PRN contrast, bubble, strain, and 3D order panel; Future Hypertension 06/29/2024 Assessment & Plan (06/29/2024 4:48 PM EST): Suboptimally controlled today and at home for the patient. As such, I would like to attempt a trial of ARB. These agents are well-tolerated and may have some beneficial properties in small studies in hypertrophic cardiomyopathy patients. I am starting her at 25 mg of losartan daily. We will plan to repeat a basic metabolic panel in 2 to 4 weeks. She reports she has been on this agent in the past and tolerated it just fine. In the meantime we will switch her to once daily verapamil 240 mg daily for ease of use. She will let me know if she has any issues with the new medications. Orders: ECG 12 lead Basic metabolic panel; Future Hyperlipidemia 02/26/2021 Overview (06/29/2024): Last Assessment & Plan: I reviewed her last lipid profile with her. Her last profile from October 2022 demonstrated total cholesterol is 133 with an HDL 59 LDL 58. AST and ALT were normal. Seizure disorder ([facility] V24, [facility] V28) 06/15 Overview (06/29/2024): Seizure disorder Cerebrovascular accident ([facility] V24, [facility] V 28) 04/20/2013 Overview (06/29/2024): Stroke Encounters Date Type Department Care Team Description 12/07/2024 Telephone Endocrinology [address] [phone] Magdalene Velazquez MA 11/30/2024 2:30 PM EDT Office Visit Endocrinology - [address] [phone] Scott Le MD Type 2 diabetes mellitus with other specified complication, without long-term current use of insulin ([facility] V24, [facility] V28) (Primary Dx) 11/29/2024 Telephone Endocrinology [address] [phone] Scott Le MD lab orders needed (Before this afternoon - appointment 11/30) 10/11/2024 1:45 PM EDT Office Visit Orthopedic Surgery - [address] [phone] Juarez Parra DPRobert Dermatophytosis, nail (Primary Dx); Hammertoes of both feet; Controlled type 2 diabetes with neuropathy ([facility] V24, [facility] V28) from Last 3 Months Family History Medical History Relation Name Comments Heart attack Father Heart attack Maternal Grandmother Other: unknown heart problems Paternal Grandmother Relation Name Status Comments Father Maternal Grandmother Paternal Grandmother Social History Tobacco Use Types Packs/Day Years Used Date Smoking Tobacco: Never Smokeless Tobacco: Never Tobacco Cessation:Counseling Given: Not Answered Alcohol Use Standard Drinks/Week Comments Yes 0 (1 standard drink = 0.6 oz pur e alcohol) occasionally Comments No Sex and Gender Information Value Date Recorded Sex Assigned at Not on file Legal Sex Female 9:30 AM EST Gender Identity Not on file Sexual Orientation Not on file Obstetrics History Last Filed Vital Signs Vital Sign Reading Time Taken Comments Blood Pressure 118/80 11/30/2024 2:29 PM EDT C Pulse 76 11/30/2024 2:29 PM EDT Temperature 36.3 C (97.3 F) 11/30/2024 2:29 PM EDT Respiratory Rate - - Oxygen Saturation 96% 11/30/2024 2:29 PM EDT Inhaled Oxygen Concentration - - Weight 120 kg (263 lb 12.8 oz) 11/30/2024 2:29 PM EDT Height 176.5 cm (5' 9.5 ) 11/30/2024 2:29 PM EDT Body Mass Index 38.4 11/30/2024 2:29 PM EDT Plan of Treatment Upcoming Encounters Date Type Department Care Team (Late st Contact Info) Description 01/10/2025 2:15 PM EDT Office Visit Orthopedic Surgery - [place] [address] [facility] [address] [place] [phone] Juarez Parra, DPM [address] [address] 01/12/2025 8:30 AM EDT Office Visit Endocrinology - [address] [phone] Scott Le MD [address] [place] [address] 03/16/2025 7:40 AM EDT Office Visit [facility] - [facility] [address] [facility] [address] [place] [phone] Jose Alex NP [address] [place] [address] 04/24/2025 3:00 PM EST Office Visit [facility] 175 [facility] [address] [place] [phone] Sebastián John MD 175 [facility] [address] [place] [address] Health Maintenance Due Date Last Done Comments Breast Cancer Screening 1966 Diabetes: Annual Foot Exam 1976 Diabetes: Annual Retina Eye Exam 1976 Hepatitis B Vaccines (1 of 3 - 19+ 3-dose series) 1985 Cervical Cancer Screening: Pap Smear 12/22/1987 Pneumococcal Vaccine: 50+ Years (2 of 2 - PCV) 04/24/2014 04/24/2013 Zoster Vaccines (1 of 2) 2016 Colorectal Cancer Screening: Colonoscopy 05/23/2022 HIV Screening 05/23/2022 Hepatitis C Screening 05/23/2022 Medicare Annual Wellness Visit 05/23/2022 Social Influencers of Health Screening 05/23/2022 Diabetes: Annual Urine Albumin-Creatinine Ratio (uACR) 01/07/2024 Depression Screening 06/14/2024 Influenza Vaccine (#1) 2025 , 04/06/2023, 02/27/2021, Additional history exists Diabetes: Blood Sugar Control Test (HGBA1C) 04/12/2025 10/11/2024, 07/20/2024, 12/23/2023 Diabetes: Annual GFR (Glomerular Filtration Rate) 10/11/2025 10/11/2024, 07/17/2024 Hypertension/CHF/CAD Annual BMP Blood Test 10/11/2025 10/11/2024, 07/17/2024 Cholesterol Screening (Lipid Panel) 10/11/2029 10/11/2024, 07/17/2024 DTaP,Tdap,and Td Vaccines (2 - Td or Tdap) 10/05/2032 10/05/2022 COVID-19 Vaccine Completed 04/17/2024, , 10/30/2021, Additional history exists HIB Vaccines Aged Out No longer eligi ble based on patient's age to complete this topic HPV Vaccines Aged Out No longer eligi ble based on patient's age to complete this topic Hepatitis A Vaccines Aged Out No long er eligible based on patient's age to complete this topic IPV Vaccines Aged Out No longer eligi ble based on patient's age to complete this topic MMR Vaccines Aged Out No longer eligi ble based on patient's age to complete this topic Meningococcal ACWY Vaccine Aged Out N o longer eligible based on patient's age to complete this topic Meningococcal B Vaccine Aged Out No l onger eligible based on patient's age to complete this topic RSV Immunization Patients Under 20 months Aged Out No longer eligible based on patient's age to complete this topic Varicella Vaccines Aged Out No longer eligible based on patient's age to complete this topic Procedures Procedure Name Priority Date/Time Associated Diagnosis Comments CBC WITH AUTO DIFFERENTIAL Routine 10/11/2024 8:45 AM EDT Routine general medical examination at a health care facility Hyperlipemia Essential hypertension, malignant Diabetes mellitus (CMS/HCC V24, CMS/HCC V28) HEMOGLOBIN A1C Routine 10/11/2024 8:45 AM EDT Routine general medical examination at a health care facility Hyperlipemia Essential hypertension, malignant Diabetes mellitus (CMS/HCC V24, CMS/HCC V28) COMPREHENSIVE METABOLIC PANEL Routine 10/11/2024 8:45 AM EDT Routine general medical examination at a health care facility Hyperlipemia Essential hypertension, malignant Diabetes mellitus (CMS/HCC V24, CMS/HCC V28) CBC AND DIFFERENTIAL Routine 10/11/2024 8:45 AM EDT Routine general medical examination at a health care facility Hyperlipemia Essential hypertension, malignant Diabetes mellitus (CMS/HCC V24, CMS/HCC V28) THYROID STIMULATING HORMONE Routine 10/11/2024 8:45 AM EDT Routine general medical examination at a health care facility Hyperlipemia Essential hypertension, malignant Diabetes mellitus (CMS/HCC V24, CMS/HCC V28) CREATINE KINASE Routine 10/11/2024 8:45 AM EDT Routine general medical examination at a [facility] care facility Hyperlipemia Essential hypertension, malignant Diabetes mellitus ([facility] V24, [facility] V28) LIPID PANEL WITH REFLEX TO DIRECT LDL Routine 10/11/2024 8:45 AM EDT Routine general medical examination at a [facility] care facility Hyperlipemia Essential hypertension, malignant Diabetes mellitus ([facility] V24, [facility] V28) from Last 3 Months Results * (ABNORMAL) Lipid panel with reflex to direct LDL (10/11/2024 8:45 AM EDT) Cholesterol 155 0 - 200 mg/dL LAB CHEMISTRY METHOD 10/11/2024 11:25 AM EDT [facility] Triglycerides 165(H) 0 - 150 mg/dL LAB CHEMISTRY METHOD 10/11/2024 11:25 AM EDT [facility] HDL 48 >=40 mg/dL LAB CHEMISTRY METHOD 10/11/2024 11:25 AM EDT [facility] LDL Calculated 74 0 - 100 mg/dL LAB CHEMISTRY METHOD 10/11/2024 11:25 AM EDT [facility] VLDL Cholesterol Yared 33 mg/dL LAB CHEMISTRY METHOD 10/11/2024 11:25 AM EDT [facility] Non HDL Chol. (LDL+VLDL) 107 <145 mg/dL LAB CHEMISTRY METHOD 10/11/2024 11:25 AM EDT [facility] Chol/HDL Ratio 3.2 0.0 - 4.4 LAB CHEMISTRY METHOD 10/11/2024 11:25 AM EDT [facility] Blood Venous blood specimen / Unknown Venipuncture / Unknown 10/11/2024 8:45 AM EDT 10/11/2024 8:45 AM EDT us Soniya Caro NP LAB BLOOD ORDERABLES Fi nal Result [facility] [address] [place] [address], * (ABNORMAL) CBC auto differential (10/11/2024 8:45 AM EDT) [facility] Signature WBC 5.4 4.8 - 10.8 K/mcL LAB HEMETOLOGY METHOD 10/11/2024 11:19 AM EDT [facility] RBC 4.80 3.80 - 4.80 M/[facility] LAB HEMETOLOGY METHOD 10/11/2024 11:19 AM EDT [facility] Hemoglobin 13.3 11.5 - 16.0 g/dL LAB HEMETOLOGY METHOD 10/11/2024 11:19 AM EDT [facility] Hematocrit 40.7 35.0 - 47.0 % LAB HEMETOLOGY METHOD 10/11/2024 11:19 AM EDT [facility] MCV 85.3 79.0 - 98.0 FL LAB HEMETOLOGY METHOD 10/11/2024 11:19 AM EDT [facility] MCH 27.9 27.0 - 32.0 pcg LAB HEMETOLOGY METHOD 10/11/2024 11:19 AM EDT [facility] MCHC 32.7 32.0 - 37.0 g/dL LAB HEMETOLOGY METHOD 10/11/2024 11:19 AM EDT [facility] RDW 13.2 11.0 - 15.0 % LAB HEMETOLOGY METHOD 10/11/2024 11:19 AM EDT [facility] Platelets 187 130 - 400 K/mcL LAB HEMETOLOGY METHOD 10/11/2024 11:19 AM EDT [facility] MPV 11.8(H) 7.0 - 11.0 FL LAB HEMETOLOGY METHOD 10/11/2024 11:19 AM EDT [facility] NRBC 0.0 <1.0 % LAB HEMETOLOGY METHOD 10/11/2024 11:19 AM [facility] NRBC Absolute 0.00 <0.10 K/mcL LAB HEMETOLOGY METHOD 10/11/2024 11:19 AM [facility] Neutrophils Relative 61.4 % LAB HEMETOLOGY METHOD 10/11/2024 11:19 AM [facility] Lymphocytes Relative 26.9 % LAB HEMETOLOGY METHOD 10/11/2024 11:19 AM [facility] Monocytes Relative 8.5 % LAB HEMETOLOGY METHOD 10/11/2024 11:19 AM [facility] Eosinophils Relative 2.2 % LAB HEMETOLOGY METHOD 10/11/2024 11:19 AM [facility] Basophils Relative 0.6 % LAB HEMETOLOGY METHOD 10/11/2024 11:19 AM [facility] Immature Granulocytes Relative 0.4 % LAB HEMETOLOGY METHOD 10/11/2024 11:19 AM [facility] Neutrophils Absolute 3.33 1.50 - 7.00 K/mcL LAB HEMETOLOGY METHOD 10/11/2024 11:19 AM [facility] Lymphocytes Absolute 1.46 1.00 - 5.00 K/mcL LAB HEMETOLOGY METHOD 10/11/2024 11:19 AM [facility] Monocytes Absolute 0.46 0.20 - 1.00 K/mcL LAB HEMETOLOGY METHOD 10/11/2024 11:19 AM [facility] Eosinophils Absolute 0.12 0.00 - 0.50 K/mcL LAB HEMETOLOGY METHOD 10/11/2024 11:19 AM [facility] Basophils Absolute 0.03 0.00 - 0.20 K/mcL LAB HEMETOLOGY METHOD 10/11/2024 11:19 AM [facility] Immature Granulocytes Absolute 0.02 0.00 - 0.03 K/mcL LAB HEMETOLOGY METHOD 10/11/2024 11:19 AM EDT [facility] Blood Venous blood specimen / Unknown Venipuncture / Unknown 10/11/2024 8:45 AM EDT 10/11/2024 8:45 AM EDT Soniya Caro NP LAB BLOOD ORDERABLES Fi nal Result Performing Organization Address [facility]/ZIP Co de Phone Number [facility] [address] [place] [address], [place] [phone] * Thyroid stimulating hormone (10/11/2024 8:45 AM EDT) Pathologist [facility] TSH 1.47 0.40 - 4.00 mcIU/mL LAB CHEMISTRY METHOD 10/11/2024 1:05 PM EDT [facility] Blood Venous blood specimen / Unknown Venipuncture / Unknown 10/11/2024 8:45 AM EDT 10/11/2024 8:45 AM EDT us Soniya Caro NP LAB BLOOD ORDERABLES Fi nal Result Performing Organization Address [facility] Co de Phone Number [facility] [address] [place] [address], [place] [phone] * (ABNORMAL) Hemoglobin A1c (10/11/2024 8:45 AM EDT) Hemoglobin A1C 7.4(H) <6.5 % LAB CHEMISTRY METHOD 10/11/2024 12:47 PM EDT [facility] Mean Bld Glu Estim. 166 mg/dL LAB CHEMISTRY METHOD 10/11/2024 12:47 PM EDT [facility] Blood Venous blood specimen / Unknown Venipuncture / Unknown 10/11/2024 8:45 AM EDT 10/11/2024 8:45 AM EDT us Soniya Caro NP LAB BLOOD ORDERABLES Fi nal Result Performing Organization Address City/[facility]/ZIP Co de Phone Number [facility] [address] [place] [address], [place] [phone] * Creatine kinase (10/11/2024 8:45 AM EDT) [facility] Total CK 117 22 - 269 unit/L LAB CHEMISTRY METHOD 10/11/2024 11:25 AM EDT [facility] Blood Venous blood specimen / Unknown Venipuncture / Unknown 10/11/2024 8:45 AM EDT 10/11/2024 8:45 AM EDT us Soniya Caro NP LAB BLOOD ORDERABLES Fi nal Result Performing Organization Address [facility]/ZIP Co de Phone Number [facility] [address] [place] [address], [place] [phone] * (ABNORMAL) Comprehensive metabolic panel (10/11/2024 8:45 AM EDT) [facility] Sodium 140 133 - 145 mmol/L LAB CHEMISTRY METHOD 10/11/2024 11:25 AM EDT [facility] Potassium 4.5 3.5 - 5.5 mmol/L LAB CHEMISTRY METHOD 10/11/2024 11:25 AM EDT [facility] Chloride 106 96 - 110 mmol/L LAB CHEMISTRY METHOD 10/11/2024 11:25 AM EDT [facility] CO2 24 21 - 32 mmol/L LAB CHEMISTRY METHOD 10/11/2024 11:25 AM EDT [facility] Anion Gap 10 3 - 11 LAB CHEMISTRY METHOD 10/11/2024 11:25 AM [facility] Glucose 142(H) 70 - 100 mg/dL LAB CHEMISTRY METHOD 10/11/2024 11:25 AM [facility] BUN 23 5 - 25 mg/dL LAB CHEMISTRY METHOD 10/11/2024 11:25 AM [facility] Creatinine 0.78 0.50 - 1.10 mg/dL LAB CHEMISTRY METHOD 10/11/2024 11:25 AM [facility] eGFR 89 >=60 mL/min/1. 73m2 LAB CHEMISTRY METHOD 10/11/2024 11:25 AM [facility] Comment:Calculation based on the Chronic Kidney Disease Epidemiology Collaboration (CKD-EPI) equation refit without adjustment for race. BUN/Creatinine Ratio 29.5 LAB CHEMISTRY METHOD 10/11/2024 11:25 AM [facility] Calcium 9.3 8.5 - 10.5 mg/dL LAB CHEMISTRY METHOD 10/11/2024 11:25 AM [facility] AST (SGOT) 33 10 - 42 unit/L LAB CHEMISTRY METHOD 10/11/2024 11:25 AM [facility] ALT (SGPT) 45 10 - 60 unit/L LAB CHEMISTRY METHOD 10/11/2024 11:25 AM [facility] Alkaline Phosphatase 50 42 - 121 unit/L LAB CHEMISTRY METHOD 10/11/2024 11:25 AM [facility] Total Protein 7.4 6.0 - 8.0 g/dL LAB CHEMISTRY METHOD 10/11/2024 11:25 AM [facility] Albumin 4.1 3.2 - 5.0 g/dL LAB CHEMISTRY METHOD 10/11/2024 11:25 AM [facility] Total Bilirubin 1.0 0.0 - 1.4 mg/dL LAB CHEMISTRY METHOD 10/11/2024 11:25 AM [facility] Blood Venous blood specimen / Unknown Venipuncture / Unknown 10/11/2024 8:45 AM EDT 10/11/2024 8:45 AM EDT us Soniya Caro [employer] LAB BLOOD ORDERABLES Fi nal Result [facility] ([facility]) [facility] [address] [place] [address], [place] [phone] from Last 3 Months Insurance MEDICARE MEDICAID - [place] Care Teams Brass Pickler Relationship Specialty Start Date End Date Shmuel Nieves DO [address] [place] [phone] PCP - General 08/29/13
== END 2025-01-02 15:21 | disposition home or self-care (01) ==
LOC: HO.HSMS 14:18
PROVIDERS: PCP Internal Medicine; Visit Provider Nurse Practitioner Family
DX: G47.33 Obstructive sleep apnea (adult) (pediatric) (principal); R06.83 Snoring; G47.30 Sleep apnea, unspecified; G40.909 Epilepsy, unspecified, not intractable, without status epilepticus; G81.94 Hemiplegia, unspecified affecting left nondominant side; I69.30 Unspecified sequelae of cerebral infarction
CPT/HCPCS: 99214

== ENCOUNTER → 2025-01-02 14:18 | Outpatient (BNVA) | payer MEDICARE, MEDICAID, SELFPAY | PROVIDERS: PCP Internal Medicine; Visit Provider Nurse Practitioner Family | DX: G47.33 Obstructive sleep apnea (adult) (pediatric) (principal); R06.83 Snoring; G47.30 Sleep apnea, unspecified; G40.909 Epilepsy, unspecified, not intractable, without status epilepticus; G81.94 Hemiplegia, unspecified affecting left nondominant side; I69.30 Unspecified sequelae of cerebral infarction | CPT/HCPCS: 99212 ==